=== PATIENT | male | born 1985 | race Caucasian/White ===

== ENCOUNTER 2016-09-24 09:34 | Emergency (ER) | payer BC, OTHER ==
[~2016-09-24] VITALS: Ht 177.8 cm; Wt 111.6 kg
[~2016-09-24 09:34] MED LIST: ACYC1CAP8 PO; ALBUAER2 INH; CPR/500 PO; NRV/10 PO
[2016-09-24 09:55] VITALS: Ht 177.8 cm; Wt 111.6 kg
[2016-09-24] MEDS ORDERED: ACETAMINOPHEN 325 MG TAB PO STA (10:58)
--- NOTE | 2016-09-24 11:18 | EMERGENCY ROOM VISIT NOTE ---
History Report prepared by Klever: Shira Wright Under the Supervision of: Dr. Lyssa Diaz M.D. First contact with patient: 10:35 Chief Complaint: FEVER Stated Complaint: FEVER - SORE - COUGHING History of Present Illness The patient is a 30 year old male who presents to the Emergency Room with complaints of a persistent fever over the past few days. The patient states that he was able to control his fever with Tylenol, but did not take anything last night because he wanted to see how he felt this morning. This morning he still had a fever. He did not take anything this morning. His temperature was 39.2 upon arrival to the emergency room. He also complains of generalized head pressure which began this morning and a productive cough. He states that he has been wheezing off and on since the onset of his symptoms. This morning he had one episode of vomiting. His bowel movements have been slightly more loose than usual but he has not had diarrhea. The patient notes that he has a history of Burkitt's lymphoma which he was treated for at [facility] about a year ago. He has been in remission since his treatments concluded in December 2015. He notes that he is not currently being treated for anything, but has been found to be neutropenic since his treatments ended, although he was not neutropenic in June 2016. He notes that he received vaccinations one week ago. He states that his and daughter were ill with similar symptoms this morning. Denies sore throat or other complaints. Source of History: patient Onset: a few days ago Position: other (global) Symptom Intensity: temp 39.2 Timing: other (persistent) Modifying Factors (Relieving): tylenol Associated Symptoms: + cough, + headache (pressure), + vomiting, No sorethroat Review of Systems See HPI for pertinent positives & negatives. A total of 10 systems reviewed and were otherwise negative. Past Medical & Surgical Medical Problems: (1) Neutropenia (2) Neutropenic fever (3) Stage 4 lymphoma Family History Cancer Diabetes mellitus Heart disease Hypertension Kidney disease Kidney stones Lung disease Social History Smoking Status: Never Smoker Marital Status: Housing Status: lives with significant other Occupation Status: employed Current/Historical Medications Scheduled Acyclovir (Zovirax), 800 MG PO BID Amlodipine Besylate (Amlodipine Besylate), 10 MG PO QAM Amoxicillin & Pot Clavulanate (Augmentin 875-125 mg), 875 MG PO BID Beclomethasone Dip (Qvar), 1 PUFF INH BID Dapsone (Dapsone), 100 MG PO DAILY Allergies Coded Allergies: Sulfa Antibiotics (Unverified Allergy, Unknown, RASH, 09/24/16) Physical Exam Vital Signs Date Time Temp Pulse Resp B/P Pulse Ox O2 Delivery O2 Flow Rate FiO2 09/24/16 15:16 77 20 114/74 94 09/24/16 14:09 92 20 93/60 95 Room Air 09/24/16 12:48 37.9 09/24/16 12:15 100 09/24/16 11:46 95 18 131/97 94 Room Air 09/24/16 11:46 109 18 131/97 94 Room Air 09/24/16 09:55 39.2 114 20 164/73 96 Room Air Physical Exam Vital signs reviewed. General: Somewhat ill-appearing 30 year old male, in no significant distress, febrile, dry cough. HEENT: No scleral icterus, PERRLA, neck supple. Atraumatic. Cardiovascular: Regular rate and rhythm, no extra sounds. Pulmonary: Clear to auscultation bilaterally, normal work of breathing. Abdomen: Soft, nontender, nondistended, positive bowel sounds. Musculoskeletal: Atraumatic, no peripheral edema. Neurologic: Patient awake alert and oriented x 3 Skin: Warm, dry, no rash Medical Decision & Procedures ER Provider Diagnostic Interpretation: Radiology results as stated below per my review and radiologist interpretation: CHEST ONE VIEW PORTABLE CLINICAL HISTORY: COUGH dyspnea COMPARISON STUDY: 06/18/2016 FINDINGS: Central catheter in superior vena cava. Lungs are clear. Diaphragms are smooth. No evidence for cardiac enlargement. IMPRESSION: No acute process. Electronically signed by: Don Benz M.D. 09/24/2016 11:19 AM Dictated Date/Time: 09/24/2016 11:18 AM Laboratory Results 09/24/16 11:35 Red Blood Count 4.40, Mean Corpuscular Volume 83.2, Mean Corpuscular Hemoglobin 28.2, Mean Corpuscular Hemoglobin Concent 33.9, Mean Platelet Volume 11.0, Neutrophils (%) (Auto) 69.1, Lymphocytes (%) (Auto) 11.5, Monocytes (%) (Auto) 16.2, Eosinophils (%) (Auto) 2.6, Basophils (%) (Auto) 0.4, Neutrophils # (Auto ) 3.24, Lymphocytes # (Auto) 0.54, Monocytes # (Auto) 0.76, Eosinophils # (Auto ) 0.12, Basophils # (Auto) 0.02 09/24/16 11:35 Test 09/24/16 11:35 09/24/16 11:41 09/24/16 11:55 White Blood Count 4.69 K/uL (4.8-10.8) Red Blood Count 4.40 M/uL (4.7-6.1) Hemoglobin 12.4 g/dL (14.0-18.0) Hematocrit 36.6 % (42-52) Mean Corpuscular Volume 83.2 fL (80-100) Mean Corpuscular Hemoglobin 28.2 pg (25-34) Mean Corpuscular Hemoglobin Concent 33.9 g/dl (32-36) Platelet Count 129 K/uL (130-400) Mean Platelet Volume 11.0 fL (7.4-10.4) Neutrophils (%) (Auto) 69.1 % Lymphocytes (%) (Auto) 11.5 % Monocytes (%) (Auto) 16.2 % Eosinophils (%) (Auto) 2.6 % Basophils (%) (Auto) 0.4 % Neutrophils # (Auto) 3.24 K/uL (1.4-6.5) Lymphocytes # (Auto) 0.54 K/uL (1.2-3.4) Monocytes # (Auto) 0.76 K/uL (0.11-0.59) Eosinophils # (Auto) 0.12 K/uL (0-0.5) Basophils # (Auto) 0.02 K/uL (0-0.2) RDW Standard Deviation 44.8 fL (36.4-46.3) RDW Coefficient of Variation 14.7 % (11.5-14.5) Immature Granulocyte % (Auto) 0.2 % Immature Granulocyte # (Auto) 0.01 K/uL (0.00-0.02) Anion Gap 8.0 mmol/L (3-11) Est Creatinine Clear Calc Drug Dose 124.0 ml/min Estimated GFR () 104.6 Estimated GFR (Non- 90.2 BUN/Creatinine Ratio 12.9 (10-20) Calcium Level 8.4 mg/dl (8.5-10.1) Total Bilirubin 0.4 mg/dl (0.2-1) Aspartate Amino Transf (AST/SGOT) 43 U/L (15-37) Alanine Aminotransferase (ALT/SGPT) 75 U/L (12-78) Alkaline Phosphatase 72 U/L (45-117) Total Protein 6.6 gm/dl (6.4-8.2) Albumin 3.5 gm/dl (3.4-5.0) Globulin 3.1 gm/dl (2.5-4.0) Albumin/Globulin Ratio 1.1 (0.9-2) Bedside Lactic Acid Venous 1.07 mmol/L (0.90-1.70) Influenza Type A (RT-PCR) Neg for Influ A (NEG) Influenza Type A Antigen Neg for Influ A (NEG) Influenza Type B Antigen Neg for Influ B (NEG) Influenza Type B (RT-PCR) Neg for Influ B (NEG) Laboratory results per my review. Medications Administered Medications (Trade) Dose Ordered Sig/Sebastian Route Start Time Stop Time Status Last Admin Dose Admin Acetaminophen (Tylenol Tab) 650 mg NOW STAT PO 09/24/16 10:58 09/24/16 11:00 DC 09/24/16 11:58 650 MG Heparin Sodium (Porcine) (Heparin 100 Unit/ml 5ml Flush) 5 ml Stabilitech-MED ONCE .ROUTE 09/24/16 15:01 09/24/16 15:04 DC 09/24/16 15:01 5 ML ED Course 1057: Past medical records reviewed. The patient was evaluated in room B5. A complete history and physical examination was performed. 1058: Ordered Tylenol Tab 650 mg PO. 1415: Upon reevaluation, the patient was resting comfortably. I discussed findings with the patient. He verbalized agreement of the treatment plan. The patient was discharged home. Medical Decision DDx: Influenza, other viral illness, pneumonia, urinary tract infection, metabolic abnormality, medication effect, cellulitis, meningitis, intra-abdominal source. This patient was evaluated and appeared to be in no significant distress. IV access was obtained and laboratory work was drawn. The patient was placed on the campus monitor and found to be in a normal sinus rhythm. Patient was medicated with oral Tylenol. He is found to be febrile. Blood cultures were obtained due to the history of malignancy. Patient is not currently undergoing treatment and is in "remission." Laboratory work reveals no evidence of neutropenia. Influenza and strep swabs are negative. Chest x-ray is clear. Patient was feeling improved after his fever resolved. I do suspect viral etiology however the patient has a significant medical history may have an secondary bacterial bronchitis. Due to his history and persistent cough, he will be given Hycodan cough syrup, a prescription for Augmentin due to bronchitis and he will use his Ventolin inhaler at home. Patient will follow- up closely with his primary care physician for reevaluation and return to the ER for worsening of symptoms or any medical concerns. Impression Primary Impression: Bronchitis Additional Impression: Febrile illness Scribe Attestation The scribe's documentation has been prepared under my direction and personally reviewed by me in its entirety. I confirm that the note above accurately reflects all work, treatment, procedures, and medical decision making performed by me. Departure Information Dispostion Home / Self-Care Prescriptions Amoxicillin & Pot Clavulanate (Augmentin 875-125 mg) 1 Tab Tab 875 MG PO BID for 7 Days, TAB Prov: Lyssa Diaz M.D. 09/24/16 Referrals Sid Garcia M.D. (PCP) Patient Instructions My [facility] Additional Instructions Diagnosis: Febrile illness, bronchitis Albuterol 2 puffs every 4 hours as needed for wheezing. Ibuprofen 600 mg every 6 hours as needed for pain or fever. Tylenol 650 mg every 6 hours as needed for pain or fever. Augmentin 875 mg twice daily for 7 days for bronchitis. Return to the ER for worsening of symptoms or any medical concerns. Problem Qualifiers
[2016-09-24] MEDS ORDERED: QVRINH40 INH (11:58)
[2016-09-24] MEDS ORDERED: ACYC800T PO (11:58)
[2016-09-24] MEDS ORDERED: DAPS100T PO (11:58)
[2016-09-24 12:08] LABS: BASO % 0.4 %; BASO ABS # 0.02 K/uL (0-0.2); COMPLETE YES; EOS % 2.6 %; HEMATOCRIT 36.6 % (42-52); IG% 0.2 %; LYMPH % 11.5 %; LYMPH ABS # 0.54 K/uL (1.2-3.4); MEAN CELL VOLUME 83.2 fL (80-100); MEAN CORPUSCULAR HEMOGLOBIN 28.2 pg (25-34); MEAN CORPUSCULAR HGB CONC 33.9 g/dl (32-36); MONO % 16.2 %; NEUT % 69.1 %; PLATELET COUNT 129 K/uL (130-400); WHITE BLOOD COUNT 4.69 K/uL (4.8-10.8)
[2016-09-24 12:25] LABS: BUN/CREATININE RATIO 12.9 (10-20); CALCIUM 8.4 mg/dl (8.5-10.1); CREATININE 1.1 mg/dl (0.60-1.40); POTASSIUM 3.5 mmol/L (3.5-5.1)
[2016-09-24 12:27] LABS: ALB/GLOB RATIO 1.1 (0.9-2)
[2016-09-24 12:48] VITALS: TEMP 37.9
[2016-09-24 14:03] LABS: INFLUENZA A PCR Neg for Influ A (NEG); INFLUENZA B PCR Neg for Influ B (NEG)
[2016-09-24] MEDS ORDERED: AMOX875T PO (14:53)
[2016-09-24 15:16] VITALS: BP 114/74; PULSE 77; O2SAT 94
[2016-11-09] MEDS ORDERED: HYDR12.55 PO (08:49)
[2016-11-09] MEDS ORDERED: ALBUAER INH (08:49)
[2016-11-20] MEDS ORDERED: HYDR-5688 PO (06:56)
== END 2016-09-24 15:17 | disposition home or self-care (01) ==
LOC: C.EDB 09:37
DX: J40 Bronchitis, not specified as acute or chronic (principal); Z85.72 Personal history of non-Hodgkin lymphomas; Z79.899 Other long term (current) drug therapy; Z88.2 Allergy status to sulfonamides; Z80.9 Family history of malignant neoplasm, unspecified; Z83.3 Family history of diabetes mellitus; Z82.49 Family history of ischemic heart disease and other diseases of the circulatory system; Z84.1 Family history of disorders of kidney and ureter

== ENCOUNTER → 2016-10-13 | Outpatient (CLI) | payer BC ==
[~2016-10-13] MED LIST changes: -ACYC1CAP8 PO; +ACYC800T PO; +ALBUAER INH; -ALBUAER2 INH; -CPR/500 PO; +DAPS100T PO; +HYDR-5688 PO; +HYDR12.55 PO; +QVRINH40 INH
[2016-10-13 17:45] LABS: BLOOD UREA NITROGEN 12 mg/dl (7-18); BUN/CREATININE RATIO 12.3 (10-20); CARBON DIOXIDE 27 mmol/L (21-32); CHLORIDE 105 mmol/L (98-107); GLUCOSE 95 mg/dl (70-99); POTASSIUM 3.6 mmol/L (3.5-5.1); SODIUM 140 mmol/L (136-145)
== END | disposition home or self-care (01) ==
LOC: C.LABPVFM 15:43
PROVIDERS: ATTEND Nurse Practitioner
DX: I10 Essential (primary) hypertension (principal)

== ENCOUNTER → 2016-11-18 | Outpatient (CLI) | payer BC ==
[~2016-11-18] MED LIST changes: -QVRINH40 INH
[2016-11-18 14:06] LABS: IMMUNOGLOBULN A 48.1 mg/dL (70-400); IMMUNOGLOBULN M 19.6 mg/dL (40-230)
== END | disposition home or self-care (01) ==
LOC: C.LABPVFM 08:33
PROVIDERS: ATTEND Internal Medicine Hematology & Oncology
DX: C83.50 Lymphoblastic (diffuse) lymphoma, unspecified site (principal)

== ENCOUNTER → 2016-11-20 | Day surgery (SDC) | payer BC ==
[2016-11-09 08:50] VITALS: Ht 177.8 cm; Wt 113.6 kg
[~2016-11-20] VITALS: Ht 177.8 cm; Wt 113.6 kg
[~2016-11-20] MED LIST changes: +ATROPINE SULFATE 0.1 MG/ML 5ML SYR IV PRN; +CEFAZOLIN 2000 MG/60 ML D5W IV SCH; +DEXAMETHASONE SOD INJ 4 MG/ML VIAL ONE; +EpHEDrine SULFATE INJ 50 MG/ML AMP IV PRN; +FENTANYL CITRATE INJ 50 MCG/1 ML 2 ML VIAL IV PRN; +FENTANYL CITRATE INJ 50 MCG/1 ML 2 ML VIAL ONE; +HYDROCODONE/ACETAMOPHEN 5/325MG TAB PO PRN; +HYDROmorphone INJ 1 MG/ML SYR IV PRN; +LACTATED RINGER'S 1000ML 1,000 ML IV SCH; +LIDOCAINE HCL 1% 20 ML VIAL ONE; +LIDOCAINE HCL 2% 2 ML VIAL (20MG/ML) ONE; +MIDAZOLAM HCL 1 MG/ML 2ML VIAL ONE; +ONDANSETRON INJ 2 MG/ML 2 ML VIAL IV PRN; +ONDANSETRON INJ 2 MG/ML 2 ML VIAL ONE; +PROPOFOL IV EMULSION 10 MG/ML 20 ML VIAL IV ONE; +SODIUM CHLORIDE 0.9% 1000ML 1,000 ML IV SCH
--- NOTE | 2016-11-20 06:57 | Discharge Instructions-SurgCtr ---
Discharge Instructions Date of Service November 20, 2016. Visit Reason for Visit: Port Cath In Place Discharge Discharge Diagnosis / Problem: h/o lymphoma, port in place Discharge Goals Goal(s): Decrease discomfort, Improve function, Improve disease control Activity Recommendations Activity Limitations: as noted below Lifting Limitations: gradually increase as tolerated Exercise/Sports Limitations: until after follow-up appointment May Resume Sexual Activity: when tolerated Shower/Bathe: tomorrow Driving or Machine Use: resume 1 day after discharge SPECIAL CARE INSTRUCTIONS: * Cover incisions and change daily for comfort/drainage. * May use ibuprofen for pain as tolerated. * Expect some swelling and bruising. Call your doctor if: * Temperature above 101 degrees * Pain not relieved by pain medicine ordered * There is increased drainage or redness from any incision * You have any unanswered questions or concerns [phone]. FOLLOW UP VISIT: If not already scheduled, please call the office for a follow-up visit. for 2 weeks- suture removal OFFICE PHONE NUMBER: Dr. Stein Office Anesthesia . Post Anesthesia Instructions: If you have had General Anesthesia or IV Sedation: * Do not drive today. * Resume driving when surgeon permits. * Do not make important decisions or sign legal documents today. * Call surgeon for: 1. Temperature elevations greater than 101 degrees F. 2. Uncontrollable pain. 3. Excessive bleeding. 4. Persistent nausea and vomiting. 5. Medication intolerance (nausea, vomiting or rash). * For nausea and vomiting use only clear liquids such as: tea, soda, bouillon until nausea subsides, then gradually increase diet as tolerated. * If you have any concerns or questions, call your surgeon's office. If physician is unavailable and it is an emergency, call 911 or go to the nearest emergency room. . Diet Recommendations Home Diet: resume previous diet Pending Studies Studies pending at discharge: no Medical Emergencies . Who to Call and When: Medical Emergencies: If at any time you feel your situation is an emergency, please call 911 immediately. . Non-Emergent Contact Non-Emergency issues call your: Primary Care Provider, Surgeon . . "Provider Documentation" section prepared by Kieran Stein. .
--- NOTE | 2016-11-20 07:27 | History & Physical Bridge - SC ---
H&P Re-Evaluation Bridge Note: I have examined the patient, reviewed the History & Physical and in the interval since the performance of the History & Physical I have noted the following changes of clinical significance: No changes noted
--- NOTE | 2016-11-20 08:00 | [facility] Post Operative Brief Note ---
Immediate Operative Summary Operative Date November 20, 2016. 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
[2016-11-20 08:03] VITALS: TEMP 37
--- NOTE | 2016-11-20 08:20 | Anesthesia Progress Nt - [facility] ---
Anesthesia Post Op Note Date & Time November 20, 2016 at 08:21 Vital Signs Pain Intensity: 0 Vital Signs Past 12 Hours Date Time Temp Pulse Resp B/P Pulse Ox O2 Delivery O2 Flow Rate FiO2 11/20/16 08:03 37.0 88 16 127/87 96 Room Air 11/20/16 06:39 36.8 82 16 137/95 96 Room Air Notes Mental Status: alert / awake / arousable, participated in evaluation Pt Amnestic to Procedure: Yes Nausea / Vomiting: adequately controlled Pain: adequately controlled Airway Patency, RR, SpO2: stable & adequate BP & HR: stable & adequate Hydration State: stable & adequate Anesthetic Complications: no major complications apparent
[2016-11-20 08:27] VITALS: BP 132/88; PULSE 74; O2SAT 97
--- NOTE | 2016-11-20 10:14 | OPERATIVE REPORT ---
DATE OF OPERATION: 11/20/2016 PREOPERATIVE DIAGNOSIS: History of lymphoma with port in place. POSTOPERATIVE DIAGNOSIS: Same. NAME OF OPERATION: Port removal. STAFF SURGEON: Dr. Stein. ANESTHESIA: 1% plain lidocaine with sedation. PROCEDURE: The patient was brought in the operating room and placed on the operating table in supine position. His left chest was prepped and draped in usual fashion. Plain lidocaine 1% was used to anesthetize the skin and subcutaneous tissue. Incision made carrying dissection down identifying the port, dissecting it from surrounding tissue, removing the catheter, oversewing the tunnel using 2-0 chromic catgut suture. Subcutaneous tissue was reapproximated using 2-0 chromic catgut suture then the skin reapproximated using interrupted 5-0 Prolene suture. The patient was transferred to recovery room in stable condition. I attest to the content of the Intraoperative Record and any orders documented therein. Any exceptio ns are noted below.
== END | disposition home or self-care (01) ==
LOC: X.SURG 06:31
PROVIDERS: ATTEND Surgery
DX: Z45.2 Encounter for adjustment and management of vascular access device (principal); Z85.72 Personal history of non-Hodgkin lymphomas; I10 Essential (primary) hypertension; J45.909 Unspecified asthma, uncomplicated; G47.30 Sleep apnea, unspecified; R16.0 Hepatomegaly, not elsewhere classified; F41.8 Other specified anxiety disorders; Z79.899 Other long term (current) drug therapy

== ENCOUNTER → 2016-12-26 | Outpatient (CLI) | payer BC ==
[~2016-12-26] MED LIST changes: -ATROPINE SULFATE 0.1 MG/ML 5ML SYR IV PRN; -CEFAZOLIN 2000 MG/60 ML D5W IV SCH; -DEXAMETHASONE SOD INJ 4 MG/ML VIAL ONE; -EpHEDrine SULFATE INJ 50 MG/ML AMP IV PRN; -FENTANYL CITRATE INJ 50 MCG/1 ML 2 ML VIAL IV PRN; -FENTANYL CITRATE INJ 50 MCG/1 ML 2 ML VIAL ONE; -HYDROCODONE/ACETAMOPHEN 5/325MG TAB PO PRN; -HYDROmorphone INJ 1 MG/ML SYR IV PRN; -LACTATED RINGER'S 1000ML 1,000 ML IV SCH; -LIDOCAINE HCL 1% 20 ML VIAL ONE; -LIDOCAINE HCL 2% 2 ML VIAL (20MG/ML) ONE; -MIDAZOLAM HCL 1 MG/ML 2ML VIAL ONE; -ONDANSETRON INJ 2 MG/ML 2 ML VIAL IV PRN; -ONDANSETRON INJ 2 MG/ML 2 ML VIAL ONE; -PROPOFOL IV EMULSION 10 MG/ML 20 ML VIAL IV ONE; -SODIUM CHLORIDE 0.9% 1000ML 1,000 ML IV SCH
== END | disposition home or self-care (01) ==
LOC: C.LABPVFM 08:13
PROVIDERS: ATTEND Family Medicine
DX: J02.9 Acute pharyngitis, unspecified (principal)

== ENCOUNTER → 2017-03-04 | Outpatient (CLI) | payer BC ==
[2017-03-04 12:56] LABS: BASO % 0.6 %; BASO ABS # 0.04 K/uL (0-0.2); COMPLETE YES; EOS % 3.3 %; HEMATOCRIT 47.9 % (42-52); IG% 0.3 %; LYMPH % 13.8 %; LYMPH ABS # 0.93 K/uL (1.2-3.4); MEAN CELL VOLUME 81.2 fL (80-100); MEAN CORPUSCULAR HEMOGLOBIN 28.1 pg (25-34); MEAN CORPUSCULAR HGB CONC 34.7 g/dl (32-36); MONO % 6.8 %; NEUT % 75.2 %; PLATELET COUNT 212 K/uL (130-400); WHITE BLOOD COUNT 6.74 K/uL (4.8-10.8)
[2017-03-04 12:57] LABS: ALT/SGPT 100 U/L (12-78); BLOOD UREA NITROGEN 11 mg/dl (7-18); BUN/CREATININE RATIO 11.3 (10-20); CALCIUM 9.2 mg/dl (8.5-10.1); CARBON DIOXIDE 28 mmol/L (21-32); CHLORIDE 106 mmol/L (98-107); CREATININE 0.93 mg/dl (0.60-1.40); GLUCOSE 135 mg/dl (70-99); POTASSIUM 3.6 mmol/L (3.5-5.1); SODIUM 140 mmol/L (136-145)
[2017-03-04 13:17] LABS: ALB/GLOB RATIO 1.3 (0.9-2); ALKALINE PHOSPHATASE 117 U/L (45-117); AST/SGOT 34 U/L (15-37)
== END | disposition home or self-care (01) ==
LOC: C.LABPVFM 09:07
PROVIDERS: ATTEND Nurse Practitioner
DX: C85.90 Non-Hodgkin lymphoma, unspecified, unspecified site (principal); L65.9 Nonscarring hair loss, unspecified; R20.2 Paresthesia of skin; R16.0 Hepatomegaly, not elsewhere classified

== ENCOUNTER → 2017-06-14 | Outpatient (CLI) | payer BC ==
[~2017-06-14] MED LIST changes: -HYDR-5688 PO
== END | disposition home or self-care (01) ==
LOC: C.LABSPEC 15:37
PROVIDERS: ATTEND Ophthalmology
DX: H10.403 Unspecified chronic conjunctivitis, bilateral (principal)

== ENCOUNTER → 2017-07-07 | Outpatient (CLI) | payer BC ==
[2017-07-07 17:44] LABS: BASO % 0.9 %; BASO ABS # 0.07 K/uL (0-0.2); EOS % 4.9 %; EOS ABS # 0.38 K/uL (0-0.5); HEMATOCRIT 48.1 % (42-52); HEMOGLOBIN 17.1 g/dL (14.0-18.0); IG# 0.05 K/uL (0.00-0.02); LYMPH ABS # 1.39 K/uL (1.2-3.4); MEAN CELL VOLUME 80.6 fL (80-100); MEAN CORPUSCULAR HEMOGLOBIN 28.6 pg (25-34); MEAN CORPUSCULAR HGB CONC 35.6 g/dl (32-36); MEAN PLATELET VOLUME 11.2 fL (7.4-10.4); MONO % 13.6 %; MONO ABS # 1.05 K/uL (0.11-0.59); NEUT ABS # 4.79 K/uL (1.4-6.5); PLATELET COUNT 241 K/uL (130-400); RED CELL DISTRIBUTION WIDTH CV 13.4 % (11.5-14.5); RED CELL DISTRIBUTION WIDTH SD 39.6 fL (36.4-46.3); WHITE BLOOD COUNT 7.73 K/uL (4.8-10.8)
[2017-07-07 17:53] LABS: BLOOD UREA NITROGEN 18 mg/dl (7-18); CALCIUM 9.2 mg/dl (8.5-10.1); CARBON DIOXIDE 27 mmol/L (21-32); CREATININE 1.06 mg/dl (0.60-1.40); GLUCOSE 94 mg/dl (70-99); POTASSIUM 3.6 mmol/L (3.5-5.1); SODIUM 140 mmol/L (136-145)
== END | disposition home or self-care (01) ==
LOC: C.LABPVFM 16:16
PROVIDERS: ATTEND Family Medicine
DX: R10.9 Unspecified abdominal pain (principal)

== ENCOUNTER → 2017-08-23 | Outpatient (CLI) | payer BC ==
--- NOTE | 2017-08-23 09:59 | DIAGNOSTIC IMAGING REPORT ---
CHEST 2 VIEWS ROUTINE CLINICAL HISTORY: 31 years-old Male presenting with Cough. TECHNIQUE: PA and lateral views of the chest were obtained. COMPARISON: 09/24/2016. FINDINGS: Cardiomediastinal silhouette normal. Lungs and pleural spaces clear. Osseous structures normal. Upper abdomen normal. IMPRESSION: 1. No acute cardiopulmonary disease. Electronically signed by: Christo Caruso M.D. 08/23/2017 9:58 AM Dictated Date/Time: 08/23/2017 9:57 AM
== END | disposition home or self-care (01) ==
LOC: C.RADPV 09:42
PROVIDERS: ATTEND Family Medicine
DX: R05 Cough (principal)

== ENCOUNTER → 2017-08-24 | Outpatient (CLI) | payer BC ==
--- NOTE | 2017-09-03 10:54 | CODING QUERY NO DIAGNOSIS ---
TREATMENT RENDERED WITHOUT A DIAGNOSIS : 86 To promote full compliance with coding requirements relating to patient care, physician participation is requested in all cases of cupola tender uncertainty. Please assist us with providing a diagnosis/symptom for the test(s) below: A diagnosis/symptom was not documented on your Order. A valid diagnosis/symptom is required to bill all insurances. Please remember that we are unable to code a diagnosis of rule out, probable, possible, questionable, or suspected. Tests that require a diagnosis: DOS: 08/24/17 * WOULD CULTURE, SURFACE DIAGNOSIS: Provider Signature: Date: Thank you Zuri Motta Health Information Management Once completed, please kindly fax back to [phone] For questions please call [phone]
== END | disposition home or self-care (01) ==
LOC: C.LABSPEC 15:31
PROVIDERS: ATTEND Ophthalmology
DX: H57.8 Other specified disorders of eye and adnexa (principal); H44.001 Unspecified purulent endophthalmitis, right eye

== ENCOUNTER → 2017-09-14 | Outpatient (CLI) | payer BC ==
--- NOTE | 2017-09-14 11:14 | DIAGNOSTIC IMAGING REPORT ---
CT SCAN OF THE PARANASAL SINUSES CLINICAL HISTORY: Chronic sinusitis. COMPARISON STUDY: No priors. TECHNIQUE: High-resolution CT scan of the paranasal sinuses is performed. Images are reviewed in the axial, sagittal, and coronal planes. IV contrast was not administered for this examination. The examination is performed using the fusion protocol. A dose lowering technique was utilized adhering to the principles of ALARA. CT DOSE: 621.26 mGy.cm FINDINGS: Maxillary antra: There is subtotal opacification of the left maxillary antrum. Trace mucosal thickening and small retention cysts measuring up to 12 mm are seen in the right maxillary antrum. Anterior ethmoid sinuses: Subtotally opacified on the left. Trace thickening is seen on the right. Posterior ethmoid sinuses: Mild to moderate mucosal thickening is seen in the left. Clear on the right. Sphenoid sinuses: Mild mucosal thickening is seen on the left. Clear on the right. Frontal sinuses: Moderate mucosal thickening is seen on the left. Trace dependent mucosal thickening is seen on the right. Ostiomeatal complexes: The left ostiomeatal complex is occluded. The right ostiomeatal complex is patent. Frontoethmoidal and sphenoethmoidal recesses: The left frontoethmoidal recess is occluded. The right frontoethmoidal recess and the sphenoethmoidal recesses are patent. Carotid arteries: The carotid arteries are covered and without septal attachments. Ethmoid roofs: There is slightly asymmetric elevation of the left ethmoid roof as compared to the right. Nasal turbinates: Normal in appearance. Nasal septum: There is minimal rightward deviation of the bony nasal septum. Optic nerves: Covered. Orbits: The bony orbits are intact. Orbital contents are normal in appearance. Calvarium: The imaged calvarium is normal in appearance Mastoid air cells: Well pneumatized. Brain parenchyma: Partially visualized brain parenchyma is within normal limits. IMPRESSION: Paranasal sinus disease as above, greatest involving the left maxillary antrum and the left ethmoid sinuses. Electronically signed by: Magan Grover M.D. 09/14/2017 11:12 AM Dictated Date/Time: 09/14/2017 11:06 AM
== END | disposition home or self-care (01) ==
LOC: C.CTS 10:53
DX: J01.80 Other acute sinusitis (principal)

== ENCOUNTER → 2017-09-21 | Outpatient (CLI) | payer BC ==
--- NOTE | 2017-09-21 12:51 | DIAGNOSTIC IMAGING REPORT ---
CHEST 2 VIEWS ROUTINE CLINICAL HISTORY: R05 Cough dyspnea COMPARISON STUDY: 08/23/2014 FINDINGS: The bones soft tissues and hemidiaphragms are normal. The cardiomediastinal silhouette is normal. The lungs are clear. The pulmonary vasculature is normal. IMPRESSION: Negative chest. The above report was generated using voice recognition software. It may contain grammatical, syntax or spelling errors. Electronically signed by: Don Benz M.D. 09/21/2017 12:50 PM Dictated Date/Time: 09/21/2017 12:50 PM
== END | disposition home or self-care (01) ==
LOC: C.RAD1850 12:25
PROVIDERS: ATTEND Physician Assistant
DX: R05 Cough (principal)

== ENCOUNTER → 2017-10-12 | Outpatient (CLI) | payer BC ==
--- NOTE | 2017-10-12 09:39 | DIAGNOSTIC IMAGING REPORT ---
TWO VIEW CHEST CLINICAL HISTORY: Cough. FINDINGS: PA and lateral chest radiographs are compared to study dated 09/21/2017. The cardiomediastinal silhouette is unremarkable. The lungs and pleural spaces are clear. There is no pneumothorax. The bony thorax appears intact. IMPRESSION: No active disease in the chest. Electronically signed by: Magan Grover M.D. 10/12/2017 9:38 AM Dictated Date/Time: 10/12/2017 9:38 AM
[2017-10-12 10:33] LABS: BASO % 0.4 %; BASO ABS # 0.04 K/uL (0-0.2); EOS % 3.8 %; EOS ABS # 0.39 K/uL (0-0.5); HEMATOCRIT 43.2 % (42-52); HEMOGLOBIN 15.1 g/dL (14.0-18.0); IG# 0.04 K/uL (0.00-0.02); LYMPH % 11.3 %; LYMPH ABS # 1.17 K/uL (1.2-3.4); MEAN CELL VOLUME 81.2 fL (80-100); MEAN CORPUSCULAR HEMOGLOBIN 28.4 pg (25-34); MEAN PLATELET VOLUME 10.4 fL (7.4-10.4); MONO % 12.9 %; MONO ABS # 1.34 K/uL (0.11-0.59); NEUT % 71.2 %; PLATELET COUNT 184 K/uL (130-400); RED CELL DISTRIBUTION WIDTH CV 13.9 % (11.5-14.5); RED CELL DISTRIBUTION WIDTH SD 41.4 fL (36.4-46.3); WHITE BLOOD COUNT 10.38 K/uL (4.8-10.8)
[2017-10-12 10:44] LABS: BLOOD UREA NITROGEN 15 mg/dl (7-18); CALCIUM 9.1 mg/dl (8.5-10.1); CARBON DIOXIDE 28 mmol/L (21-32); CREATININE 1.08 mg/dl (0.60-1.40); GLUCOSE 107 mg/dl (70-99); SODIUM 139 mmol/L (136-145)
[2017-10-12 11:53] LABS: INFLUENZA A PCR Neg for Influ A (NEG); INFLUENZA B PCR Neg for Influ B (NEG)
== END | disposition home or self-care (01) ==
LOC: C.RAD1850 09:13
PROVIDERS: ATTEND Physician Assistant
DX: R05 Cough (principal)

== ENCOUNTER → 2017-10-14 | Outpatient (CLI) | payer BC ==
[2017-10-14 17:50] LABS: BLOOD UREA NITROGEN 22 mg/dl (7-18); CALCIUM 9.8 mg/dl (8.5-10.1); CARBON DIOXIDE 28 mmol/L (21-32); CREATININE 1.25 mg/dl (0.60-1.40); GLUCOSE 125 mg/dl (70-99); POTASSIUM 3.5 mmol/L (3.5-5.1); SODIUM 137 mmol/L (136-145)
== END | disposition home or self-care (01) ==
LOC: C.LABPVFM 14:17
PROVIDERS: ATTEND Physician Assistant
DX: E87.6 Hypokalemia (principal)